=== PATIENT | female | born 1950 | race Caucasian/White ===

== ENCOUNTER 2021-01-14 06:28 | Inpatient (IN) | payer OTHER ==
[2021-01-10 15:21] LABS: INR 1.03 (0.9-1.15); Partial Thromboplastin Time 30.4 sec (23.6-33.0)
[~2021-01-14] VITALS: Ht 165.1 cm; Wt 77.0 kg
[~2021-01-14 06:28] MED LIST: FLUO20TA34 PO; LAMO100T44 PO; OLAN1TAB7 PO
[2021-01-14] MEDS ORDERED: ceFAZolin 1GM/50ML 100 ML IV ONE (06:51)
[2021-01-14] MEDS: LIDOCAINE W/ EPINEPHRINE 1% 20ML VIAL ONE ×2 (07:26→10:30)
[2021-01-14] MEDS ORDERED: METHYLENE BLUE 0.5% 5MG/ML 10ml AMP IV ONE (07:26)
[2021-01-14] MEDS: BUPIVACAINE 0.25% INJ 50ML VIAL ONE ×2 (07:27→10:30)
[2021-01-14] MEDS ORDERED: fentaNYL CITRATE 5 ML ONE (07:36)
[2021-01-14] MEDS ORDERED: MIDAZOLAM HCL 2MG/2ML 2ml VIAL (1mg/ml) ONE (07:36)
[2021-01-14] MEDS ORDERED: fentaNYL CITRATE 100 MCG/2 ML VL ONE (07:36)
[2021-01-14] MEDS ORDERED: PROPOFOL 10 MG/ML 20 ML IV ONE (07:47)
[2021-01-14] MEDS ORDERED: ROCURONIUM 10MG/ML 10ML VIAL IV ONE (07:47)
[2021-01-14] MEDS ORDERED: ONDANSETRON HCL 4 MG/2 ML VIAL ONE (07:47)
[2021-01-14] MEDS ORDERED: LIDOCAINE 2% (LOCAL ANESTH.) PF 5ml SDV ONE (07:47)
[2021-01-14] MEDS ORDERED: ONDANSETRON HCL 4 MG/2 ML VIAL IV PRN ×2 (08:00→10:00)
[2021-01-14] MEDS ORDERED: ACETAMINOPHEN 500 MG TAB PO PRN (08:00)
[2021-01-14] MEDS ORDERED: MORPHINE SULFATE INJECTION 2 MG/ML SYRG IV PRN (08:00)
[2021-01-14] MEDS ORDERED: ALPRAZolam 0.5 MG TAB PO PRN (08:00)
[2021-01-14] MEDS: SODIUM CHLORIDE 0.9% 1,000 ML IV SCH ×2 (08:00→15:44)
[2021-01-14] MEDS ORDERED: CLINDAMYCIN 900MG IV 50 ML IV ONE ×2 (08:00→20:00)
[2021-01-14] MEDS ORDERED: MORPHINE SULFATE 4 MG/ML SYR/VIAL IV PRN (08:00)
[2021-01-14] MEDS ORDERED: NITROGLYCERIN 0.4 MG SL TAB SL PRN (08:00)
[2021-01-14] MEDS ORDERED: HYDROmorphone HCL 2 MG/ML VL ONE (08:38)
[2021-01-14] MEDS ORDERED: HYDROmorphone HCL 2 MG/ML VL IV PRN ×2 (10:00)
[2021-01-14] MEDS ORDERED: SUCCINYLCHOLINE CHLORIDE 20 MG/ML 10ML VIAL IV ONE (10:53)
[2021-01-14 16:00] VITALS: BP 122/57
[2021-01-14] MEDS: HYDROcodone-ACET 10/325MG TAB PO PRN ×2 (16:22→20:14)
[2021-01-14 22:00] VITALS: BP 98/45
[2021-01-15] MEDS: HYDROcodone-ACET 10/325MG TAB PO PRN ×2 (04:33→08:48)
[2021-01-15 05:00] VITALS: BP 99/84
[2021-01-15] MEDS: SODIUM CHLORIDE 0.9% 1,000 ML IV SCH ×2 (08:48)
== END 2021-01-15 12:19 | disposition home or self-care (01) | DRG 742 ==
LOC: SUR 06:28 → OVERFLOW 07:46 → WEST WING 13:06
PROVIDERS: ADMIT Obstetrics & Gynecology; ATTEND Obstetrics & Gynecology
PROC: 0USG4ZZ Reposition Vagina, Percutaneous Endoscopic Approach (ICD-10-PCS; 2021-01-14)
PROC: 0UB74ZZ Excision of Bilateral Fallopian Tubes, Percutaneous Endoscopic Approach (ICD-10-PCS; 2021-01-14)
PROC: 0UT24ZZ Resection of Bilateral Ovaries, Percutaneous Endoscopic Approach (ICD-10-PCS; 2021-01-14)
PROC: 8E0W4CZ Robotic Assisted Procedure of Trunk Region, Percutaneous Endoscopic Approach (ICD-10-PCS; 2021-01-14)
PROC: 0UT94ZL Resection of Uterus, Supracervical, Percutaneous Endoscopic Approach (ICD-10-PCS; principal; 2021-01-14 07:42)
DX: N73.6 Female pelvic peritoneal adhesions (postinfective) (principal); F33.9 Major depressive disorder, recurrent, unspecified; N81.2 Incomplete uterovaginal prolapse; N18.2 Chronic kidney disease, stage 2 (mild); H54.7 Unspecified visual loss; Z20.822 Contact with and (suspected) exposure to COVID-19; R00.1 Bradycardia, unspecified; Z83.3 Family history of diabetes mellitus; Z80.52 Family history of malignant neoplasm of bladder; Z80.0 Family history of malignant neoplasm of digestive organs; Z88.1 Allergy status to other antibiotic agents; Z81.8 Family history of other mental and behavioral disorders
CPT/HCPCS: 36415; 85610; 85730; 86850; 86900; 86901; G0378; J0330; J0690; J2001; J2250; J2405; J2704; J3490